=== PATIENT | female | born 1985 | race African-American/Black ===

== ENCOUNTER → 2018-11-14 | Outpatient (CLI) | payer OTHER, BC ==
[2017-07-13 10:25] VITALS: BP 145/71
[~2018-11-14] MED LIST: AMLO5TAB4 PO; FERR325T14 PO; NIFE30TA2 PO; TRIA1CAP3 PO
--- NOTE | 2018-11-14 09:12 | KCIC ---
Ultrasound pelvis, transvaginal ultrasound 11/14/2017 CLINICAL INDICATION: Pelvic pain, right greater than left. COMPARISON: None. FINDINGS: Transvaginal and transabdominal images were obtained. Uterus measures 13.8 x 5.8 x 7.0 cm. Endometrium is normal in thickness for age with dual thickness measuring 4 mm. Intrauterine device is noted. There is mild fluid with internal debris in the endocervical canal that internal blood flow. There is trace fluid in the cul-de-sac, likely physiologic. Right ovary is enlarged measuring 5.6 x 5.0 x 3.5 cm with a simple appearing right ovarian cyst measuring 3.9 x 3.2 x 3.4 cm with no internal nodularity, septations or blood flow identified. Normal color Doppler imaging of the right ovarian parenchyma. Left ovary is not visualized transabdominally or transvaginally. Impression: 1. Simple right ovarian cyst measuring up to 3.9 cm, likely physiologic, though follow-up ultrasound in 6 weeks is recommended to assess for resolution. 2. Minimal complex endocervical fluid, may be due to menstrual products. Clinical correlation is recommended. 3. No right ovarian torsion. 4. Left ovary is not identified. 5. IUD. Electronically signed by: Sajan Mo MD (11/14/2018 9:08 AM) [facility]
== END | disposition home or self-care (01) ==
LOC: KCIC US 07:56
PROVIDERS: ATTEND Obstetrics & Gynecology
DX: N83.291 Other ovarian cyst, right side (principal); Z97.5 Presence of (intrauterine) contraceptive device
CPT/HCPCS: 76830; 76856

== ENCOUNTER → 2019-01-20 | Outpatient (CLI) | payer OTHER, BC ==
[2017-07-13 10:25] VITALS: BP 145/71
--- NOTE | 2019-01-20 11:01 | KCIC ---
Pelvic and transvaginal ultrasound History: Pelvic pain bilaterally Comparison: November 14, 2018 Findings: Multiple transabdominal sonographic images of the pelvis are submitted. Uterus measured 13.5 x 5.8 x 7 cm. There is echogenic focus in the endometrial cavity, evidence of IUD. Right ovary measured 4.8 x 3.9 x 3 cm, normal color flow demonstrated. Previously seen right ovarian cyst is no longer seen. Left ovary measured 5.9 x 3.2 x 5.3 cm. There is now anechoic lesion of left ovary about 2.7 x 2.7 x 2.6 cm in size. There is normal vascularity of the left ovary. No free fluid is demonstrated. Transvaginal ultrasound: Multiple transvaginal sonographic images of pelvis are submitted. There is mild fluid in the cervical canal. Right ovary measured 3.3 x 2.1 x 2.2 cm, demonstrable color flow. Left ovary is poorly visualized. Endometrial thickness is within normal limits about 0.6 cm, IUD present in the endometrial cavity. No free fluid is demonstrated. Impression: 1. There is IUD present. Previously seen right ovarian cyst is no longer visualized, new anechoic cyst of the left ovary about 2.7 cm greatest dimension. There is no significant free fluid. There is IUD present in the endometrial cavity. There is minimal nonspecific fluid in the cervical canal. 2. Uterus is somewhat enlarged, discrete mass not demonstrated. Electronically signed by: Brad Ryan MD (01/20/2019 10:58 AM) [id number]
== END | disposition home or self-care (01) ==
LOC: KCIC US 08:41
PROVIDERS: ATTEND Obstetrics & Gynecology
DX: N83.202 Unspecified ovarian cyst, left side (principal); N85.2 Hypertrophy of uterus; Z97.5 Presence of (intrauterine) contraceptive device
CPT/HCPCS: 76830; 76856